=== PATIENT | female | born 1985 | race African-American/Black ===

== ENCOUNTER 2021-05-05 22:01 | Emergency (ER) | payer SELFPAY ==
[2021-05-05] MEDS ORDERED: Acetaminophen 500 MG TAB ONE (22:19)
[2021-05-06 10:21] LABS: SARS-CoV-2 PCR by NAA DETECTED (NotDetected)
== END 2021-05-05 23:50 | disposition home or self-care (01) ==
LOC: ERS 22:01
DX: U07.1 COVID-19 (principal); R00.0 Tachycardia, unspecified; Z85.41 Personal history of malignant neoplasm of cervix uteri
CPT/HCPCS: 87804; 99283; U0003; U0005